=== PATIENT | male | born 1985 | race Caucasian/White ===

== ENCOUNTER 2020-12-29 22:10 | Emergency (ER) | payer OTHER ==
[~2020-12-29] VITALS: Ht 165 cm; Wt 81.6 kg
[2020-12-29 22:16] VITALS: BP 131/90
[2020-12-29] MEDS ORDERED: AMOX500C2 (22:20)
[2020-12-29] MEDS ORDERED: TETANUS,DIPTH,PERTUSS P/F (BOOSTRIX) 0.5 ML VIAL IM ONE (22:30)
--- NOTE | 2020-12-29 22:31 | ED Upper Extremity ---
General Chief Complaint: Laceration Stated Complaint: R ARM LAC Nursing Triage Note: RIGHT FOREARM LACERATION Source: patient Exam Limitations: no limitations (LATOYA BRADLEY APRN) History of Present Illness Date Seen by Provider: Dec 29, 2020 Time Seen by Provider: 22:27 Initial Comments To ER with laceration of the dorsal aspect of the right forearm from a screen while at work at [employer] this evening tetanus is not up-to-date. Onset: just prior to arrival Severity: mild Pain/Injury Location: right forearm Modifying Factors: Worse With Movement (LATOYA BRADLEY APRN) Allergies and Home Medications Allergies Coded Allergies: No Known Drug Allergies (Unverified , 12/29/20) Patient Home Medication List Home Medication List Reviewed: Yes (LATOYA BRADLEY APRN) Amoxicillin (Amoxicillin) 500 Mg Capsule, (Reported) Entered as Reported by: JAQUAN ANN on 12/29/202219 Last Action: New Order Review of Systems Constitutional: see HPI EENTM: see HPI Respiratory: no symptoms reported Cardiovascular: no symptoms reported Genitourinary: no symptoms reported Musculoskeletal: no symptoms reported Skin: see HPI Psychiatric/Neurological: No Symptoms Reported (LATOYA BRADLEY APRN) Past Qngegvc-Tzqhnp-Bfqzeq Hx Patient Social History Tobacco Use?: Yes Tobacco type used: Cigarettes Substance use?: No Alcohol Use?: No Pt feels they are or have been: No (LATOYA BRADLEY APRN) Past Medical History Surgery/Hospitalization HX: DENIES (LATOYA BRADLEY APRN) Physical Exam Vital Signs Vital Signs - First Documented 12/29/20 22:16 Temp 36.6 Pulse 76 Resp 16 B/P (MAP) 131/90 (104) Pulse Ox 98 O2 Delivery Room Air (AMY,OR[place]O K DO) Vital Signs Capillary Refill : Less Than 3 Seconds (LATOYA BRADLEY APRN) Height, Weight, BMI Height: '" Weight: lbs. oz. kg; 29.00 BMI Method: General Appearance: WD/WN, no apparent distress HEENT: PERRL/EOMI, normal ENT inspection Respiratory: no respiratory distress, no accessory muscle use Shoulder: normal inspection Elbow/Forearm: Right, soft tissue tenderness ( there is a 1.5 cm laceration with depth to the subcutaneous tissue to the dorsal ulnar aspect of the right forearm. Minimal active bleeding.) Wrist: Yes normal inspection, Yes non-tender Hand: normal inspection, no evidence of injury Neurologic/Psychiatric: alert, normal mood/affect, oriented x 3 Skin: normal color, warm/dry (LATOYA BRADLEY APRN) Progress/Results/Core Measures Results/Orders Medications Given in ED Current Medications Medications Dose Ordered Sig/David Route Start Time Stop Time Status Last Admin Dose Admin Diphtheria/ Tetanus/Acell Pertussis 0.5 ml ONCE ONCE IM 12/29/20 22:30 12/29/20 22:31 DC 12/29/20 22:28 0.5 ML ([place] REYES DO) Vital Signs/I&O 12/29/20 22:16 Temp 36.6 Pulse 76 Resp 16 B/P (MAP) 131/90 (104) Pulse Ox 98 O2 Delivery Room Air ([place] REYES DO) Blood Pressure Mean: 104 Departure Communication (Admissions) Procedure note: This laceration was anesthetized with 2 mL of 1% lidocaine with epinephrine then scrubbed with chlorhexidine/saline solution then closed with 1 continuous suture size 5-0 Prolene. (LATOYA BRADLEY APRN) Impression Primary Impression: Forearm laceration Disposition: HOME, SELF-CARE Condition: Stable Departure-Patient Inst. Decision time for Depature: 22:31 (LATOYA BRADLEY APRN) Referrals: NO,LOCAL PHYSICIAN (PCP/Family) Primary Care Physician Patient Instructions: Laceration Repair With Stitches ED Add. Discharge Instructions: You can return to work this evening. You can shower letting water run over this soon as you need to. Return to ER to have the stitches removed in about 10 days. Return to ER before then for any sign of infection such as redness swelli ng or puslike drainage. Keep this covered with a Band-Aid while at work to keep it clean. All discharge instructions reviewed with patient and/or family. Voiced understanding. ATTENDING PHYSICIAN NOTE: I WAS PHYSICALLY PRESENT ER PHYSICIAN WHEN THIS PATIENT WAS IN ER, BUT I WAS NOT INVOLVED IN DECISION MAKING OR ANY CARE OF THIS PATIENT. ([place] REYES DO) LATOYA BRADLEY APRN Dec 29, 2020 22:31 [place] REYES DO Dec 30, 2020 01:46
== END 2020-12-29 22:35 | disposition home or self-care (01) ==
LOC: ER 22:13
DX: S51.811A Laceration without foreign body of right forearm, initial encounter (principal); Z72.0 Tobacco use; Z23 Encounter for immunization; W20.8XXA Other cause of strike by thrown, projected or falling object, initial encounter; Y99.0 Civilian activity done for income or pay
CPT/HCPCS: 12001; 90715

== ENCOUNTER 2021-01-09 15:35 | Emergency (ER) | payer OTHER ==
[~2021-01-09] VITALS: Ht 177.8 cm; Wt 75.0 kg
[~2021-01-09 15:35] MED LIST: AMOX500C2
[2021-01-09 15:49] VITALS: BP 134/71
== END 2021-01-09 15:50 | disposition home or self-care (01) ==
LOC: EDUNIT# 15:35 → ER 15:37
DX: Z48.02 Encounter for removal of sutures (principal)